=== PATIENT | female | born 1965 | race Caucasian/White ===

== ENCOUNTER 2019-05-04 01:34 | Emergency (ER) | payer OTHER, SELFPAY ==
[2019-05-04] VITALS (7 sets, daily range): BP systolic 124–154; BP diastolic 80–100; PULSE 84–116; RESP 14–17; TEMP 36.6–36.8; O2SAT 94–100; BMI 35.6
--- NOTE | 2019-05-04 01:58 | ED.VISSUMM ---
- ER Visit Summary Date of Service: 05/04/19 Chief Complaint: Nausea vomiting diarrhea History of Present Illness: The patient is a 54 F who had cold [employer] pizza and anti-pasta salad for lunch today. She ate at the [employer] and had fried chicken coleslaw and mashed potatoes for dinner. About an hour and half after dinner she started having diarrhea. Then around 11:00 she started having vomiting and has not stopped vomiting. Total of 5 episodes of diarrhea. She notes a left upper quadrant abdominal pain. She had prior appendectomy and cholecystectomy. No history of pancreatitis. Physical Examination: Afebrile vital signs are stable Gen: Well-nourished well-developed Head: Normocephalic atraumatic Eyes: Perrl EOMI ENT: TMs clear no rhinorrhea moist mucous membranes Neck: Supple no lymphadenopathy no JVD nontender CVS: Regular rate tachycardic rhythm no murmurs normal S1-S2 Respiratory: No distress clear to auscultation bilaterally chest nontender Abdomen: Soft nontender nondistended normal bowel sounds no masses Back: Nontender Extremity: Nontender no edema Skin: Normal color no rash Neuro: alert orientated ?3 CN II-XII intact normal strength sensation reflexes gait cerebellar Psych: Normal affect normal mood Test Results: White count 10.5. Potassium 2.9. Normal liver and lipase. Emergency Department Course and Treatment: She received IV fluids and Phenergan. Later Bentyl and Imodium. I think the low potassium is most likely due to shifts from vomiting. This should return to normal. I am going to write for Phenergan and Zofran. Patient to have bowel rest. Return if worsening or concerns Impression: 1. Gastroenteritis This note was generated with [employer] dictation software. It may contain incorrect words, spelling, and punctuation that were not noted in review of the chart prior to signing ED Disposition - Plan for ED Patient: Disposition: Home or Assisted Living Instructions: FOOD POISONING or GASTROENTERITIS (6y-Adult) Prescriptions: proMETHazine tablet [Phenergan] 25 mg PO Q6H PRN PRN #10 tab PRN Reason: Nausea Prescription Printed Ondansetron [Zofran Odt] 4 mg PO Q6H PRN PRN #20 tab PRN Reason: Nausea Prescription Printed
[2019-05-04] MEDS: proMETHazine 25 MG/ML Syringe 12.5 MG IV ×2 (02:14→04:29)
[2019-05-04] MEDS: 0.9% Normal Saline 1,000 ML 1000 ML IV (02:14)
[2019-05-04 03:32] LABS: ALB/GLOB Ratio 1.2 RATIO (0.9-2.4); AST(SGOT) 14 U/L (15-37); Alanine Aminotransfer ALT/SGPT 21 U/L (13-56); Alkaline Phosphatase 68 U/L (45-117); Anion Gap 8 (5-15); BUN 14 mg/dL (7-18); BUN/Creat Ratio 18.3 RATIO (10-20); Calcium,Total 7.3 mg/dL (8.5-10.1); Chloride 114 mmol/L (98-107); Creatinine, Serum 0.76 mg/dL (0.55-1.02); EST Glomerular Filtration Rate 84 mL/min (>60); Est Glom Filt Rate - Afr Amer 102 mL/min (>60); Estimated Creatinine Clearance 82.29 ml/min; Globulin 2.6 g/dL (2.2-4.2); Glucose 154 mg/dL (74-106); Lipase 49 U/L (73-393); Potassium 2.9 mmol/L (3.5-5.1); Protein, Total 5.6 g/dL (6.4-8.2); Sodium Level 146 mmol/L (136-145)
[2019-05-04] MEDS: Loperamide 2 MG Capsule 4 MG PO (03:34)
[2019-05-04] MEDS: Dicyclomine 20 MG/2 ML Vial IM (03:35)
[2019-05-04 03:39] LABS: Absolute Lymphocyte Count 0.41 X10^3/ul (0.83-4.51); Absolute Neutrophil Count 9.2 X10^3/uL (2.0-7.7); Basophil# 0.01 X10^3/uL; Basophil% 0.1 % (0-1); Eosinophil# 0.06 X10^3/uL; Eosinophils% 0.6 % (0-5); Hematocrit 39.1 % (37-47); Hemoglobin 13.2 g/dl (12.0-15.0); Lymphocyte # 0.41 X10^3/ul (4.0); Lymphocyte % 3.9 % (19-41); Mean Corp Hgb Conc 33.8 g/gl (32-36); Mean Corpuscular Hgb 29.9 pg (27.0-32.0); Mean Corpuscular Volume 88.7 fL (81-99); Mean Platelet Vol. 10.6 fl (6.2-12.0); Monocyte% 7.6 % (0-10); Neutrophil % 87.6 % (47-70); Platelet Count 200 K/mm3 (150-450); RBC Distribution Width CV 12.2 % (11.6-14.6); RBC Distribution Width SD 38.8 fl (35.1-43.9); Red Blood Count 4.41 M/mm3 (4.2-5.4); White Blood Count 10.5 K/mm3 (4.4-11.0)
[2019-05-04 03:40] LABS: Differential Indicated SCAN CRITERIA MET; POSITIVE COUNT NO; POSITIVE DIFFERENTIAL YES; POSITIVE MORPHOLOGY NO
[2019-05-04] MEDS: Ondansetron ODT 4 MG Tablet PO (06:33)
== END 2019-05-04 08:03 | disposition home or self-care (01) ==
PROVIDERS: Emergency Provider Emergency Medicine
DX: K52.9 Noninfective gastroenteritis and colitis, unspecified (principal); E66.9 Obesity, unspecified; K21.9 Gastro-esophageal reflux disease without esophagitis; I10 Essential (primary) hypertension; Z87.891 Personal history of nicotine dependence; Z79.899 Other long term (current) drug therapy
CPT/HCPCS: 80053; 83690; 85025; 96361; 96372; 96374; 96376; 99285; J7030; A4216; J2405